=== PATIENT | female | born 1980 | race African-American/Black ===

== ENCOUNTER 2016-10-20 13:05 | Emergency (ER) ==
[2016-10-20] MEDS ORDERED: ZOFRAN IV ONE (13:21)
[2016-10-20] MEDS ORDERED: NS 1,000 ML IV ONE (13:21)
[2016-10-20] MEDS ORDERED: ZOFRAN ONE (13:36)
[2016-10-20 13:37] LABS: MANUAL DIFF NEEDED? NO
[2016-10-20 13:41] LABS: BASO% 0.5 % (0.0-0.8); EOS# 0.19 X1000 (0.0-0.7); EOS% 2.4 % (0.0-10.0); HEMOGLOBIN 13.6 g/dL (12.0-16.0); IMM GRAN# 0.01 X1000 (0.0-0.04); IMM GRAN% 0.1 % (0.0-0.5); LYMPH# 1.98 X1000 (1.2-3.4); LYMPH% 25.5 % (20.5-51.1); MCH 29.1 PG (27-31); MCV 85.5 FL (81-99); MONO# 0.32 X1000 (0.11-0.59); MONO% 4.1 % (1.7-9.3); MPV 10.7 FL (7.4-10.4); NEUT% 67.4 % (42.2-75.2); PLT 251 X1000 (130-400); RBC 4.68 XMIL (4.2-5.4)
[2016-10-20 13:46] LABS: URINE SOURCE CLEAN CATCH
--- NOTE | 2016-10-20 13:53 | EKG Report ---
Test Performed on : 10/20/2016 1:43:21 PM Test Reason : CP Blood Pressure : / mmHG Vent. Rate : 074 BPM Atrial Rate : 074 BPM P-R Int : 160 ms QRS Dur : 084 ms QT Int : 386 ms P-R-T Axes : 035 -24 005 degrees QTc Int : 428 ms Normal sinus rhythm. Cannot rule out Anterior infarct , age undetermined Abnormal ECG When compared with ECG of 06-SEP-2015 23:32, No significant change was found Unconfirmed Result
[2016-10-20 13:57] LABS: AGAP 11; ALBUMIN 4.3 g/dL (3.5-5.0); ALKALINE PHOSPHATASE 70 U/L (32-104); AMYLASE 114 U/L (20-200); BUN 10 mg/dL (8-22); CALCIUM 9.3 mg/dL (8.8-10.2); CHLORIDE 105 mmol/L (98-107); COSMO 278; GOT 12 U/L (10-30); GPT 13 U/L (10-36); LIPASE 46 U/L (13-60); POTASSIUM 3.7 mmol/L (3.5-5.1); SODIUM 139 mmol/L (136-145); TCO2 23 mmol/L (25-35)
[2016-10-20 13:57] LABS: BILIRUBIN URINE NEGATIVE (NEGATIVE); BLOOD URINE TRACE (NEGATIVE); CLARITY CLEAR (CLEAR); COLOR YELLOW; GLUCOSE URINE NEGATIVE (NEGATIVE); LEUKOCYTES URINE NEGATIVE (NEGATIVE); NITRITE URINE POSITIVE (NEGATIVE); PROTEIN URINE NEGATIVE (NEGATIVE); URINE CULTURE PL NEEDED? YES; URINE EPITHELIAL CELLS >10 /HPF (<10); URINE RBC <10 /HPF (<10); URINE WBC <10 /HPF (<10); UROBILINOGEN URINE NORMAL
--- NOTE | 2016-10-20 13:59 | PROVIDER DOCUMENTATION ---
HPI-Abdominal Pain/GI Problem - General Source: patient - History of Present Illness-ABD Nature of Presenting Problems: pt is a 35 y/o F that presents with two days of generalized abdominal pain. Denies fever/chills, n/v, or dysuria. She developed some scapular chest pain with radiation to jaw after having BM today. Abdominal Pain Onset Location: reports: generalized abdomen Severity in ED: reports: mild Onset/Duration: reports: gradual, 2 days ago Timing: reports: still present, constant Activities at Onset: reports: none Modifying Factors: improves with: nothing Associated Symptoms: reports: back/neck pain, chest pain (scapluar), diarrhea. denies: diaphoresis, fever/chills, genitourinary problems, nausea, shortness of breath, vomiting Similar Symptoms Previously?: No Recently seen or treated by another doctor?: No <Mahendra Muller - Last Filed: 10/20/16 14:11> <Gwendolyn Jolly - Last Filed: 10/20/16 14:22> - General Chief Complaint: General Adult Stated Complaint: ABD PAIN Time Seen by Provider: 10/20/16 13:20 Allergies/Adverse Reactions: Patient Allergies Allergy/AdvReac Type Severity Reaction Status Date / Time No Known Allergies Allergy Verified 03/06/16 16:40 Home Medications: Home Medication List Medication Instructions Recorded Confirmed Last Taken Type Lisinopril 5 mg PO DAILY 10/20/16 10/20/16 Unknown History Metformin [Glucophage] 250 mg PO BID 10/20/16 10/20/16 Unknown History Ondansetron Odt [Zofran 8Mg Odt] 8 mg PO Q8H PRN PRN #20 tablet 10/20/16 Unknown Rx Sulfamethoxazole/Trimethoprim 1 each PO BID #10 tablet 10/20/16 Unknown Rx [Bactrim Ds Tablet] Review of Systems - Adult - REVIEW OF SYSTEMS - ADULT Constitutional: denies: chills, fever Eyes: reports: no symptoms reported Ears, Nose, Mouth & Throat: denies: sinus problem, throat pain, throat swelling Cardiovascular: reports: chest pain. denies: palpitations, syncope Respiratory: denies: cough, shortness of breath, wheezing Gastrointestinal: reports: abdominal pain, diarrhea. denies: nausea, vomiting Genitourinary: denies: dysuria, frequency, hematuria Musculoskeletal: reports: no symptoms reported Integumentary: reports: no symptoms reported Neurological: reports: no symptoms reported Psychiatric: reports: no symptoms reported Endocrine: reports: no symptoms reported Hematologic/Lymphatic: reports: no symptoms reported Allergic/Immunologic: reports: no symptoms reported All Other Systems: Reviewed and Negative <Mahendra Muller - Last Filed: 10/20/16 14:11> Past History - Adult - PAST MEDICAL HISTORY-ADULT Review of Records: reports: Old Records Reviewed, Nursing Assessment Review, Medications Reviewed Endocrine/Immune: reports: Diabetes - PRIOR SURGERIES/PROCEDURES Surgical/Procedure History: reports: hysterectomy - IMMUNIZATION STATUS Childhood Immunizations: See Nurse Assessment Flu Vaccine: See Nurse Assessment - FAMILY HISTORY Family History: reviewed, not pertinent - SOCIAL HISTORY Smoking: non-smoker Alcohol Use Frequency: occasionally Living Situation: family <Mahendra Muller - Last Filed: 10/20/16 14:11> Physical Exam-General - PHYSICAL EXAM-ADULT Initial Vital Signs Reviewed: Yes - CONSTITUTIONAL General Appearance: alert, no apparent distress - EYES Eyes: PERRL/EOMI, pink conjunctivae - HEAD, EARS, NOSE, MOUTH & THROAT HENMT: normocephalic/atraumatic, moist mucous membranes, normal ENT inspection - NECK Neck: full range of motion, normal inspection. negative: lymphadenopathy - RESPIRATORY Respiratory: lungs clear, normal breath sounds, no respiratory distress, no accessory muscle use - CARDIOVASCULAR Cardiovascular: regular rate, rhythm, no edema, no murmur - GASTROINTESTINAL (ABDOMEN) Abdominal Exam: normal bowel sounds, non tender, soft, no organomegaly, no pulsatile mass - MUSCULOSKELETAL Back Exam: normal inspection, no vertebral tenderness Extremity: normal range of motion, normal inspection, no pedal edema - SKIN Integumentary: normal color, warm/dry - NEUROLOGIC Neurologic: grossly normal, no motor/sensory deficits - PSYCHIATRIC Psych/Mental Status: normal mood/affect, normal thought content, normal thought process, oriented x 3 <Mahendra Muller - Last Filed: 10/20/16 14:11> Progress - EKG 1 Time of EKG reading by physician:: 13:43 EKG Read and Signed by:: Ric Hawley EKG Interpretation (*Must complete 3 of following elements*): Abnormal Rate: 74 Rhythm: NSR [place]: normal QRS: normal KS Interval: normal ST Wave: non-specific ST changes <Mahendra Muller - Last Filed: 10/20/16 14:11> - PLAN OF CARE/RESULTS Progress/Plan/Lab Results: Vital Signs Temp Pulse Resp BP Pulse Ox 10/20/16 13:09 98 F 83 18 136/86 99 No Known Allergies Allergy (Verified 03/06/16 16:40) Lisinopril 5 mg PO DAILY 10/20/16 Metformin [Glucophage] 250 mg PO BID 10/20/16 Dietary Diet NPO Start SunOct 20 1320 Laboratory 10/20/16 10/20/16 10/20/16 13:30 13:30 13:30 WBC 7.76 RBC 4.68 Hgb 13.6 Hct 40.0 MCV 85.5 MCH 29.1 MCHC 34.0 RDW Std Deviation 13.0 Plt Count 251 MPV 10.7 H Immature Gran % (Auto) 0.1 Neut % (Auto) 67.4 Lymph % (Auto) 25.5 Shannon % (Auto) 4.1 Eos % (Auto) 2.4 Baso % (Auto) 0.5 Immature Gran # (Auto) 0.01 Neut # (Auto) 5.22 Lymph # (Auto) 1.98 Shannon # (Auto) 0.32 Eos # (Auto) 0.19 Baso # (Auto) 0.04 Sodium Potassium Chloride Carbon Dioxide Anion Gap BUN Creatinine Estimated GFR/1.73 m2 BUN/Creatinine Ratio Glucose Calculated Osmolality Calcium Total Bilirubin AST ALT Alkaline Phosphatase Creatine Kinase 131 Troponin T < 0.010 Total Protein Albumin Globulin Albumin/Globulin Ratio Amylase Lipase Urine Source Urine Color Urine Clarity Urine pH Ur Specific [place] Urine Protein Urine Ketones Urine Blood Urine Nitrite Urine Bilirubin Urine Urobilinogen Urine Microscopic RBC Urine WBC Urine Microscopic WBC Ur Epithelial Cells Urine Bacteria Urine Glucose 10/20/16 10/20/16 13:30 13:25 WBC RBC Hgb Hct MCV MCH MCHC RDW Std Deviation Plt Count MPV Immature Gran % (Auto) Neut % (Auto) Lymph % (Auto) Shannon % (Auto) Eos % (Auto) Baso % (Auto) Immature Gran # (Auto) Neut # (Auto) Lymph # (Auto) Shannon # (Auto) Eos # (Auto) Baso # (Auto) Sodium 139 Potassium 3.7 Chloride 105 Carbon Dioxide 23 L Anion Gap 11 BUN 10 Creatinine 0.7 Estimated GFR/1.73 m2 > 60 BUN/Creatinine Ratio 14 Glucose 123 H Calculated Osmolality 278 Calcium 9.3 Total Bilirubin 0.40 AST 12 ALT 13 Alkaline Phosphatase 70 Creatine Kinase Troponin T Total Protein 7.0 Albumin 4.3 Globulin 3.0 Albumin/Globulin Ratio 2.0 Amylase 114 Lipase 46 Urine Source CLEAN CATCH Urine Color YELLOW Urine Clarity CLEAR Urine pH 6.0 Ur Specific [place] 1.020 Urine Protein NEGATIVE Urine Ketones NEGATIVE Urine Blood TRACE Urine Nitrite POSITIVE A Urine Bilirubin NEGATIVE Urine Urobilinogen NORMAL Urine Microscopic RBC <10 Urine WBC NEGATIVE Urine Microscopic WBC <10 Ur Epithelial Cells >10 A Urine Bacteria 3+ Urine Glucose NEGATIVE Orders Category Date Time Status Saline Loc DIRECTED Care 10/20/16 13:20 Active Urine Preg [ED: Urine Bedside] ORDERED Care 10/20/16 13:23 Active NPO Diet 10/20/16 13:20 Active AMYLASE [CHEM] Stat Lab 10/20/16 13:30 Completed CBC WITH ELECTRONIC DIFF [HEME] Stat Lab 10/20/16 13:30 Completed CK PROFILE [SP CHEM] Stat Lab 10/20/16 13:30 Completed COMPREHENSIVE METABOLIC PANEL [CHEM] Stat Lab 10/20/16 13:30 Completed LIPASE [CHEM] Stat Lab 10/20/16 13:30 Completed TROPONIN T Stat Lab 10/20/16 13:[address] W/POSS RFLX CULT [URINALYSIS] Stat Lab 10/20/16 13:25 Completed URINE CULTURE [RM] Routine Lab 10/20/16 13:57 Ordered 0.9% Sodium Chloride Inj [Ns] 1,000 ml Med 10/20/16 13:21 Active IV 999 mls/hr CefTRIAXONE 1 GM/NS [Rocephin 1 gm/Ns] 50 ml Med 10/20/16 14:21 Active IV NOW Ondansetron [Zofran] Med 10/20/16 13:36 Discontinued 4 mg .ROUTE .STK-MED ONE Ondansetron [Zofran] Med 10/20/16 13:21 Discontinued 8 mg IV NOW ONE EKG [EKG] Stat Ther 10/20/16 13:33 Draft <Gwendolyn Jolly - Last Filed: 10/20/16 14:22> Departure <Mahendra Muller - Last Filed: 10/20/16 14:11> - Departure Time of Disposition Order: 14:21 Certified Medical Emergency: Emergent <Gwendolyn Jolly - Last Filed: 10/20/16 14:22> - Departure DIAGNOSIS: Acute UTI Disposition: HOME 01 Condition: Stable Additional Instructions: ED Follow Up Instructions: You have been treated by a care provider in the Emergency Department. These instructions are being provided to you so you can have an understanding of how to care for yourself upon discharge. Upon discharge from the Emergency Department, you are responsible for making arrangements for follow-up care by a physician of your choice. Take all prescribed medications as directed. Return to the Emergency Department immediately for any new or worsening symptoms. You may call the Physician Referral phone number at [phone] to obtain a list of Physicians who are taking new patients. Prescriptions: Sulfamethoxazole/Trimethoprim [Bactrim Ds Tablet] 1 each PO BID #10 tablet Ondansetron Odt [Zofran 8Mg Odt] 8 mg PO Q8H PRN PRN #20 tablet PRN Reason: Nausea Attestation - Scribe Verification/Attestation Scribe:: Mahendra Muller Acting as Scribe for:: Gwendolyn Jolly Scribe documention review:: This chart was documented by a scribe and accurately reflects the service the provider performed and the decisions made by the provider. - Physician/ KELI Attestation Patient care was provided by Advanced Practice Provider:: Yes Advanced Practice Provider:: Gwendolyn Jolly Advanced Practice Provider documentation review:: The Mid-level provider documentation, treatment plan and medical decision making was reviewed by the physician who agrees with all treatment and medical decision making by the P. <Mahendra Muller - Last Filed: 10/20/16 14:11> Physician Attestation - Physician Attestation I, the provider, attest to the following statement:: Gwendolyn Jolly Physician documentation Attestation:: This documentation recorded by the scribe accurately reflects the service I personally performed and the decisions made by me. <Mahendra Muller - Last Filed: 10/20/16 14:11>
[2016-10-20] MEDS ORDERED: ROCEPHIN 1 GM/NS 50 ML IV ONE (14:21)
[2016-10-20 14:59] VITALS: BP 121/81
== END 2016-10-20 15:01 | disposition home or self-care (01) ==
LOC: P.ED 13:05
DX: N39.0 Urinary tract infection, site not specified (principal); R94.31 Abnormal electrocardiogram [ECG] [EKG]; R10.84 Generalized abdominal pain; R07.89 Other chest pain; R68.84 Jaw pain; R19.7 Diarrhea, unspecified; E11.9 Type 2 diabetes mellitus without complications; Z79.899 Other long term (current) drug therapy
CPT/HCPCS: 80053; 81001; 82150; 82550; 83690; 84484; 85025; 87077; 87088; 87186; 93005; 96361; 96365; 96375; J0696; J2405; J7030